=== PATIENT | male | born 1980 | race Hispanic/Latino ===

== ENCOUNTER 2016-12-28 16:05 | Emergency (ER) | payer MEDICAID ==
[2016-12-28 16:14] VITALS: BP 124/83
--- NOTE | 2016-12-28 17:23 | Emergency Department Report ---
ED General Adult HPI - General Chief complaint: Medical Clearance Stated complaint: MEDS REFILL Time Seen by Provider: 12/28/16 16:55 Source: patient Mode of arrival: Ambulatory Limitations: No Limitations - History of Present Illness Initial comments: PT states he needs a medication refill. PT states that in 2013 he was at [facility] and dx with a benign 8 mm brain tumor. PT States this causes him to have chronic headaches. PT states his head hurts everyday. PT states he started taking Fioricet in 2013. PT states he had a PCP( "some foreigner off [place]") that would prescribe him Fioricet but he was told that he would need to go to pain management. PT states that his PCP office would not write the prescriptions properly. PT states that he is also on Soma for chronic R hip pain. PT states he also has a hx of UC and sometimes takes Prednisone. PT states he has had to go to UC for medication refill and they would only give him a few pills. MD Complaint: headache -: Gradual, year(s) (3) Location: head, right (hip ) Quality: constant Consistency: constant Improves with: medication Associated Symptoms: headaches. denies: loss of appetite, nausea/vomiting Treatments Prior to Arrival: none, other (pt states he is out of his medication ) - Related Data Allergies Allergy/AdvReac Type Severity Reaction Status Date / Time No Known Allergies Allergy Unverified 10/09/15 17:02 ED Review of Systems ROS: Stated complaint: MEDS REFILL Other details as noted in HPI Comment: All other systems reviewed and negative Constitutional: denies: chills, fever Gastrointestinal: denies: abdominal pain, nausea, vomiting, diarrhea, hematemesis, melena, hematochezia Musculoskeletal: as per HPI (chronic R hip pain, improves with Soma) Neurological: headache. denies: abnormal gait ED Past Medical Hx - Past Medical History Previous Medical History?: Yes Hx Psychiatric Treatment: Yes Additional medical history: chronic back maxx,hx fractures, brain tumor, UC - Surgical History Additional Surgical History: hip/femur fx - Social History Smoking Status: Never Smoker Substance Use Type: None ED Physical Exam - General Limitations: No Limitations General appearance: alert, in no apparent distress - Head Head exam: Present: atraumatic, normocephalic, normal inspection - Eye Eye exam: Present: normal appearance, EOMI, other (pupils dialated ). Absent: PERRL - ENT ENT exam: Present: normal exam, normal external ear exam - Neck Neck exam: Present: normal inspection, full ROM - Respiratory Respiratory exam: Present: normal lung sounds bilaterally. Absent: respiratory distress - Cardiovascular Cardiovascular Exam: Present: regular rate, normal rhythm - GI/Abdominal GI/Abdominal exam: Present: soft, normal bowel sounds. Absent: tenderness - Extremities Exam Extremities exam: Present: normal inspection, full ROM - Back Exam Back exam: Present: normal inspection, full ROM - Neurological Exam Neurological exam: Present: alert, oriented X3, CN II-XII intact, normal gait - Psychiatric Psychiatric exam: Present: normal affect, normal mood - Skin Skin exam: Present: warm, dry, intact ED Course Vital Signs 12/28/16 16:10 Temperature 98.0 F Pulse Rate 74 Respiratory 16 Rate Blood Pressure 124/83 O2 Sat by Pulse 99 Oximetry - Reevaluation(s) Reevaluation #1: 12/28/16 17:27 PT aware that I looked up his RX history with the [facility] database PT has filled 140 tablets of Fioricet this month. PT last filled RX for Fioricet 3 days ago. PT filled 30 pills. PT is already out of medication. PT aware that I do not fill comfortable giving him RX. Will defer to Dr Oropeza 12/28/16 17:49 Dr Oropeza agrees with plan of care. PT aware no RX will be given. - Pulse Oximetry Interpretation Digit-Finger Initial Pulse Oximetry Readin Actions Taken: none ED Medical Decision Making - Differential Diagnosis headache Critical Care Time: No Critical care attestation.: If time is entered above; I have spent that time in minutes in the direct care of this critically ill patient, excluding procedure time. ED Disposition Clinical Impression: Chronic headache Qualifiers: Headache type: unspecified Intractability: not intractable Qualified Code(s): R51 - Headache Disposition: DC- TO HOME OR SELFCARE Is pt being admited?: No Does the pt Need Aspirin: No Condition: Stable Instructions: Migraine Headache (ED), Chronic Pain (ED) Additional Instructions: Take OTC Tylenol for your headache. Do not take more than 3 grams a day Referrals: MANDA HERRERA MD [Primary Care Provider] - 3-5 Days ELZA DEJESUS MD [Staff Physician] - 3-5 Days [facility] [Outside] - 3-5 Days Time of Disposition: 17:31
== END 2016-12-28 17:56 | disposition home or self-care (01) ==
LOC: ED 16:05
DX: R51 Headache (principal); G89.29 Other chronic pain
CPT/HCPCS: 99282

== ENCOUNTER 2017-01-20 14:44 | Emergency (ER) | payer MEDICAID ==
[2017-01-20 14:54] VITALS: BP 128/88
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
[2017-01-20] MEDS ORDERED: MOTRIN PO ONE (17:42)
--- NOTE | 2017-01-20 17:44 | XRay Report ---
FINAL REPORT EXAM: XR RIBS UNI W PA CHEST 3+V LT HISTORY: LT RIB pain sp fall TECHNIQUE: PA view of the chest and 4 views of the left ribs PRIORS: None. FINDINGS: There is an acute fracture involving anterior lateral left 10th rib and probably lateral 11th rib. There is a remote deformity involving the posterior right 11th rib and the posterior right 7th rib. On the chest film, the lungs are clear without evidence for infiltrate, effusion, or pneumothorax. The cardiomediastinal silhouette is normal . IMPRESSION: Acute fracture involving the anterior lateral left 10th rib and probably lateral abernathy rib. Remote rib deformities on the right are also noted.
== END 2017-01-20 18:20 | disposition home or self-care (01) ==
LOC: ED 14:44
DX: S22.42XA Multiple fractures of ribs, left side, initial encounter for closed fracture (principal); G89.29 Other chronic pain; C71.9 Malignant neoplasm of brain, unspecified; W01.0XXA Fall on same level from slipping, tripping and stumbling without subsequent striking against object, initial encounter; Y93.89 Activity, other specified; Y99.8 Other external cause status; Y92.89 Other specified places as the place of occurrence of the external cause
CPT/HCPCS: 99283

== ENCOUNTER 2017-02-11 16:27 | Emergency (ER) | payer MEDICAID ==
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
[2017-02-11] MEDS ORDERED: FLEXERIL PO ONE (19:53)
[2017-02-11] MEDS ORDERED: TORADOL IM ONE (19:53)
[2017-02-11 20:36] VITALS: BP 124/80
== END 2017-02-11 20:36 | disposition home or self-care (01) ==
LOC: ED 16:27
DX: G89.29 Other chronic pain (principal); M79.604 Pain in right leg
CPT/HCPCS: 96372; 99282; J1885

== ENCOUNTER 2017-02-12 12:41 | Emergency (ER) | payer MEDICAID ==
[2017-02-12 13:28] VITALS: BP 134/115
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
--- NOTE | 2017-02-13 02:17 | ED Elopement Review ---
ED Pt Elopement review - Call Back decision Pt Call Back Decision: No action required
== END 2017-02-13 05:55 | disposition left against medical advice (07) ==
LOC: ED 12:41
DX: R07.81 Pleurodynia (principal); Z53.21 Procedure and treatment not carried out due to patient leaving prior to being seen by health care provider

== ENCOUNTER 2017-02-14 16:23 | Emergency (ER) | payer MEDICAID ==
--- NOTE | 2017-02-14 18:50 | Emergency Department Report ---
ED Recheck HPI - General Chief Complaint: Recheck/Abnormal Lab/Rx Stated Complaint: LT SIDE PAIN Time Seen by Provider: 02/14/17 17:52 Source: patient Mode of arrival: Ambulatory Limitations: No Limitations - History of Present Illness Initial Comments: This is a 37-year-old male nontoxic, well nourished in appearance, no acute signs of distress the patient to ED requesting for tramadol refill. Patient stated he has a rib fracture that occurred one month ago. Patient denies any new trauma to area or any other complaints. Patient states pain is still aching with level of 10 out of 10. Patient denies any shortness of breath, chest pain, numbness, tingling, nausea, vomiting, fever or chills. Denies headache or stiff neck. Patient denies any allergies. MD Complaint: medication refill request -: Gradual, month(s) (1) Returns Today for: request for prescription Symptoms Since Prior Visit: no new symptoms Associated Symptoms: none. denies: fever, chills, chest pain, shortness of breath, rash, malaise, nasuea, abdominal pain - Related Data Previous Rx's Medication Instructions Recorded Last Taken Type traMADol [Ultram] 50 mg PO Q6HR PRN #15 tablet 01/20/17 Unknown Rx Carisoprodol [Soma] 350 mg PO BID #24 tablet 02/11/17 Unknown Rx Ibuprofen [Motrin 800 MG tab] 800 mg PO Q8HR PRN #20 tablet 02/11/17 Unknown Rx Ibuprofen [Motrin 600 MG tab] 600 mg PO Q8H PRN #30 tablet 02/14/17 Unknown Rx Allergies Allergy/AdvReac Type Severity Reaction Status Date / Time No Known Allergies Allergy Verified 02/14/17 16:46 ED Review of Systems ROS: Stated complaint: LT SIDE PAIN Other details as noted in HPI Constitutional: denies: chills, fever Eyes: denies: eye pain, eye discharge, vision change ENT: denies: ear pain, throat pain Respiratory: denies: cough, shortness of breath, wheezing Cardiovascular: denies: chest pain, palpitations Endocrine: no symptoms reported Gastrointestinal: denies: abdominal pain, nausea, diarrhea Genitourinary: denies: urgency, dysuria Musculoskeletal: denies: back pain, joint swelling, arthralgia Skin: denies: rash, lesions Neurological: denies: headache, weakness, paresthesias Psychiatric: denies: anxiety, depression Hematological/Lymphatic: denies: easy bleeding, easy bruising ED Past Medical Hx - Past Medical History Hx Psychiatric Treatment: Yes (anxiety) Additional medical history: chronic back pain,hx fractures, brain tumor, UC - Surgical History Additional Surgical History: hip/femur fx - Social History Smoking Status: Never Smoker Substance Use Type: Prescribed - Medications Home Medications: Home Medications Medication Instructions Recorded Confirmed Last Taken Type traMADol [Ultram] 50 mg PO Q6HR PRN #15 tablet 01/20/17 Unknown Rx Carisoprodol [Soma] 350 mg PO BID #24 tablet 02/11/17 Unknown Rx Ibuprofen [Motrin 800 MG tab] 800 mg PO Q8HR PRN #20 tablet 02/11/17 Unknown Rx Ibuprofen [Motrin 600 MG tab] 600 mg PO Q8H PRN #30 tablet 02/14/17 Unknown Rx ED Physical Exam - General Limitations: No Limitations General appearance: alert, in no apparent distress - Head Head exam: Present: atraumatic, normocephalic, normal inspection - Eye Eye exam: Present: normal appearance, PERRL, EOMI. Absent: scleral icterus, conjunctival injection, nystagmus, periorbital swelling, periorbital tenderness Pupils: Present: normal accommodation - ENT ENT exam: Present: normal exam, normal orophraynx, mucous membranes moist, TM's normal bilaterally, normal external ear exam - Neck Neck exam: Present: normal inspection, full ROM. Absent: tenderness, meningismus, lymphadenopathy, thyromegaly - Respiratory Respiratory exam: Present: normal lung sounds bilaterally. Absent: respiratory distress, wheezes, rales, rhonchi, stridor, chest wall tenderness, accessory muscle use, decreased breath sounds, prolonged expiratory, other (no ecchymosis or trauma to rib area. No swelling. Nontender.) - Cardiovascular Cardiovascular Exam: Present: regular rate, normal rhythm, normal heart sounds. Absent: bradycardia, tachycardia, irregular rhythm, systolic murmur, diastolic murmur, rubs, gallop - GI/Abdominal GI/Abdominal exam: Present: soft, normal bowel sounds. Absent: distended, tenderness, guarding, rebound, rigid, diminished bowel sounds - Rectal Rectal exam: Present: deferred - Extremities Exam Extremities exam: Present: normal inspection, full ROM, normal capillary refill. Absent: tenderness, pedal edema, joint swelling, calf tenderness - Back Exam Back exam: Present: normal inspection, full ROM. Absent: tenderness, CVA tenderness (R), CVA tenderness (L), muscle spasm, paraspinal tenderness, vertebral tenderness, rash noted - Neurological Exam Neurological exam: Present: alert, oriented X3, CN II-XII intact, normal gait, reflexes normal - Psychiatric Psychiatric exam: Present: normal affect, normal mood - Skin Skin exam: Present: warm, dry, intact, normal color. Absent: rash ED Course Vital Signs 02/14/17 16:48 Temperature 98.3 F Pulse Rate 73 Respiratory 17 Rate Blood Pressure 102/69 O2 Sat by Pulse 100 Oximetry - Reevaluation(s) Reevaluation #1: 02/14/17 18:49 Patient is speaking full sentences with no signs of distress. ED Recheck MDM - Medical Decision Making Patient is stable. He is requesting for refill of tramadol. [employer] TOOL FILER was ran. Patient aware of Rx history with the [facility] database. Patient agrees to taking ibuprofen at discharge for pain. Patient also states he has an incentive spirometer from under it that he uses on a daily basis. At time time of discharge, the patient does not seem toxic or ill in appearance. No acute signs of distress noted. Patient agrees to discharge treatment plan of care. No further questions noted by the patient. X-ray on 02/12/2017 indicates that healing left ninth and 10th rib fractures. Patient was notified of x-ray findings with the further course noted by patient. Critical care attestation.: If time is entered above; I have spent that time in minutes in the direct care of this critically ill patient, excluding procedure time. ED Disposition Clinical Impression: Medication refill Fracture of rib with routine healing Qualifiers: Rib fracture type: multiple ribs Fracture type: closed Laterality: left Qualified Code(s): S22.42XD - Multiple fractures of ribs, left side, subsequent encounter for fracture with routine healing Disposition: -01 TO HOME OR SELFCARE Is pt being admited?: No Does the pt Need Aspirin: No Condition: Stable Instructions: Rib Fracture (ED), Ibuprofen (By mouth) Additional Instructions: Follow-up with your primary care doctor 3-5 days or symptoms such as shortness of breath, difficult breathing, fever, chills, nausea, vomiting, chest pain or worsening symptoms return to the ER as soon as possible. Continue doing incentive spirometer as directed. Take ibuprofen as prescribed for pain as needed Prescriptions: Ibuprofen [Motrin 600 MG tab] 600 mg PO Q8H PRN #30 tablet PRN Reason: Pain Referrals: PRIMARY CAREMD [Primary Care Provider] - 3-5 Days KELSEY APPIAH MD [Staff Physician] - 3-5 Days [facility] [Outside] - 3-5 Days [facility] [Outside] - 3-5 Days
[2017-02-14 19:31] VITALS: BP 103/65
== END 2017-02-14 19:30 | disposition home or self-care (01) ==
LOC: ED 16:23
DX: S22.42XD Multiple fractures of ribs, left side, subsequent encounter for fracture with routine healing (principal); X58.XXXD Exposure to other specified factors, subsequent encounter
CPT/HCPCS: 99282

== ENCOUNTER 2017-02-15 17:29 | Emergency (ER) | payer MEDICAID ==
--- NOTE | 2017-02-15 20:46 | Emergency Department Report ---
ED General Adult HPI - General Chief complaint: Medical Clearance Stated complaint: BROKEN RIBS/MED REFILL Time Seen by Provider: 02/15/17 20:39 Source: patient Mode of arrival: Ambulatory Limitations: No Limitations - History of Present Illness Initial comments: pt request refill for tramadol 4th visit for same 3rd this week , advised pt follow up with [facility] as directed pt denies new fall injury or trauma pt , pain described as 4/10 sharp exacerbated by deep inspiration pain is relieved by rest and tramadol however pt is out of tramadol x 1 months now rx ibuprofen advises that he does not want to take ibuprofen Onset/Timin -: month(s) Location: chest (left lateral chest rib fx 10&11) Radiation: non-radiation Severity scale (0 -10): 4 Quality: aching, sharp Consistency: intermittent Improves with: rest Worsens with: movement, other (deep inspiration ) Associated Symptoms: denies other symptoms. denies: confusion, chest pain, cough, fever/chills, headaches, loss of appetite, malaise, nausea/vomiting, rash , seizure, shortness of breath, syncope, weakness Treatments Prior to Arrival: none - Related Data Previous Rx's Medication Instructions Recorded Last Taken Type traMADol [Ultram] 50 mg PO Q6HR PRN #15 tablet 01/20/17 Unknown Rx Carisoprodol [Soma] 350 mg PO BID #24 tablet 02/11/17 Unknown Rx Ibuprofen [Motrin 800 MG tab] 800 mg PO Q8HR PRN #20 tablet 02/11/17 Unknown Rx Ibuprofen [Motrin 600 MG tab] 600 mg PO Q8H PRN #30 tablet 02/14/17 Unknown Rx Cyclobenzaprine [Flexeril] 10 mg PO TID PRN #30 tablet 02/15/17 Unknown Rx Naproxen [Naprosyn TAB] 500 mg PO BID PRN #60 tablet 02/15/17 Unknown Rx Allergies Allergy/AdvReac Type Severity Reaction Status Date / Time No Known Allergies Allergy Verified 02/14/17 16:46 ED Review of Systems ROS: Stated complaint: BROKEN RIBS/MED REFILL Other details as noted in HPI Constitutional: denies: chills, fever Eyes: denies: eye pain, eye discharge, vision change ENT: denies: ear pain, throat pain Respiratory: denies: cough, shortness of breath, wheezing Cardiovascular: denies: chest pain, palpitations Endocrine: no symptoms reported Gastrointestinal: denies: abdominal pain, nausea, diarrhea Genitourinary: denies: urgency, dysuria Musculoskeletal: denies: back pain, joint swelling, arthralgia Skin: denies: rash, lesions Neurological: denies: headache, weakness, paresthesias Psychiatric: denies: anxiety, depression Hematological/Lymphatic: denies: easy bleeding, easy bruising ED Past Medical Hx - Past Medical History Previous Medical History?: Yes Hx Psychiatric Treatment: Yes (anxiety) Additional medical history: chronic back pain,hx fractures, brain tumor, UC - Surgical History Past Surgical History?: Yes Additional Surgical History: hip/femur fx - Social History Smoking Status: Never Smoker Substance Use Type: None - Medications Home Medications: Home Medications Medication Instructions Recorded Confirmed Last Taken Type traMADol [Ultram] 50 mg PO Q6HR PRN #15 tablet 01/20/17 Unknown Rx Carisoprodol [Soma] 350 mg PO BID #24 tablet 02/11/17 Unknown Rx Ibuprofen [Motrin 800 MG tab] 800 mg PO Q8HR PRN #20 tablet 02/11/17 Unknown Rx Ibuprofen [Motrin 600 MG tab] 600 mg PO Q8H PRN #30 tablet 02/14/17 Unknown Rx Cyclobenzaprine [Flexeril] 10 mg PO TID PRN #30 tablet 02/15/17 Unknown Rx Naproxen [Naprosyn TAB] 500 mg PO BID PRN #60 tablet 02/15/17 Unknown Rx ED Physical Exam - General Limitations: No Limitations General appearance: alert, in no apparent distress - Head Head exam: Present: atraumatic, normocephalic - Eye Eye exam: Present: normal appearance - ENT ENT exam: Present: mucous membranes moist - Neck Neck exam: Present: normal inspection - Respiratory Respiratory exam: Present: normal lung sounds bilaterally, chest wall tenderness. Absent: respiratory distress, wheezes, rales, rhonchi, stridor, accessory muscle use, decreased breath sounds, prolonged expiratory - Cardiovascular Cardiovascular Exam: Present: regular rate, normal rhythm. Absent: systolic murmur, diastolic murmur, rubs, gallop - GI/Abdominal GI/Abdominal exam: Present: soft, normal bowel sounds - Rectal Rectal exam: Present: deferred - Extremities Exam Extremities exam: Present: normal inspection - Back Exam Back exam: Present: normal inspection - Neurological Exam Neurological exam: Present: alert, oriented X3 - Psychiatric Psychiatric exam: Present: normal affect, normal mood - Skin Skin exam: Present: warm, dry, intact, normal color. Absent: rash ED Course Vital Signs 02/15/17 17:33 Temperature 98.5 F Pulse Rate 72 Respiratory 16 Rate Blood Pressure 98/62 O2 Sat by Pulse 99 Oximetry ED Medical Decision Making - Medical Decision Making pt is a 37 y/o w/m s/p left lateral rib fracture 01/20/17 to 10&11 who presents requesting pain medication refill for tramadol, pt seen x 3 for same in past week pt advised to see follow up at [facility] as directed or follow with orthopedics as directed , will rx naproxen 500 mg po bid, flexeril 10 mg po bid prn pain /spasm pt has already stopped ibuprofen advised not to take both nsaids, will dc to self at this time pt verbalized understanding of discharge plan. Critical care attestation.: If time is entered above; I have spent that time in minutes in the direct care of this critically ill patient, excluding procedure time. ED Disposition Clinical Impression: Chest wall pain, Medication refill Disposition: DC-01 TO HOME OR SELFCARE Is pt being admited?: No Does the pt Need Aspirin: No Condition: Good Instructions: Thoracic Pain (ED), Rib Fracture (ED) Prescriptions: Cyclobenzaprine [Flexeril] 10 mg PO TID PRN #30 tablet PRN Reason: Muscle Spasm Naproxen [Naprosyn TAB] 500 mg PO BID PRN #60 tablet PRN Reason: Pain Referrals: PRIMARY CARE, [Primary Care Provider] - 3-5 Days Forms: Work/School Release Form(ED) Time of Disposition: 20:51
[2017-02-16 01:30] VITALS: BP 110/73
== END 2017-02-15 21:15 | disposition home or self-care (01) ==
LOC: ED 17:29
DX: R07.89 Other chest pain (principal); Z76.0 Encounter for issue of repeat prescription; F41.9 Anxiety disorder, unspecified
CPT/HCPCS: 99282